=== PATIENT | female | born 1980 | race Caucasian/White ===

== ENCOUNTER → 2020-12-24 | Outpatient (CLI) | payer BC ==
[~2020-12-24] MED LIST: EC NAPROSYN500 MG PO; LEXAPRO20 MG PO; RITALIN PO
== END ==
LOC: COL.RAD 12:51
DX: M79.671 Pain in right foot (principal); M79.672 Pain in left foot

== ENCOUNTER 2021-07-21 14:44 | Emergency (ER) | payer OTHER, BC ==
[~2021-07-21] VITALS: Ht 170.2 cm; Wt 94.5 kg
[2021-07-21 14:50] VITALS: BP 139/92; PULSE 95; TEMP 98.3
[2021-07-21] MEDS ORDERED: PERCOCET 325 MG1 TA2 PO (16:38)
[2021-07-21] MEDS ORDERED: MOTRIN 800800 MG/TAB PO (16:38)
== END 2021-07-21 16:54 | disposition home or self-care (01) ==
LOC: COL.ER 14:44
DX: S30.1XXA Contusion of abdominal wall, initial encounter (principal); M54.50 Low back pain, unspecified; M54.2 Cervicalgia; S80.11XA Contusion of right lower leg, initial encounter; F17.210 Nicotine dependence, cigarettes, uncomplicated; Z88.6 Allergy status to analgesic agent; V40.5XXA Car driver injured in collision with pedestrian or animal in traffic accident, initial encounter; Y92.410 Unspecified street and highway as the place of occurrence of the external cause